=== PATIENT | male | born 1975 | race Caucasian/White ===

== ENCOUNTER 2018-04-26 07:41 | Emergency (ER) | payer MEDICAID ==
[~2018-04-26] VITALS: Ht 165.1 cm; Wt 68.5 kg
[2018-04-26 08:01] VITALS: Ht 165.1 cm; Wt 68.5 kg
[2018-04-26 08:59] LABS: PLATELET COUNT 212 x10^3mcL (130-400); RED CELL DISTRIBUTION WIDTH 14.3 % (11.5-14.5)
[2018-04-26 09:05] LABS: CALCIUM 8.9 mg/dL (8.5-10.1); CARBON DIOXIDE 25.2 mmol/L (21-32); CHLORIDE SERUM 100 mmol/L (98-107); GFR1 > 60 mL/min; GLUCOSE SERUM 111 mg/dL (74-106); POTASSIUM SERUM 3.7 mmol/L (3.5-5.1); SODIUM SERUM 134 mmol/L (136-145)
[2018-04-26 09:10] LABS: ALBUMIN 3.8 g/dL (3.4-5.0); ALKALINE PHOSPHATASE 112 U/L (46-116); ALT/SGPT 63 U/L (16-63); AST/SGOT 31 U/L (15-37); BILIRUBIN TOTAL 0.8 mg/dL (0.20-1.00); LIPASE 75 IU/L (73-393); TOTAL PROTEIN, SERUM 8.4 g/dL (6.4-8.2)
[2018-04-26 09:18] LABS: microscopic required? YES; urine erythrocyte NEGATIVE (NEGATIVE)
[2018-04-26 10:57] LABS: BAND NEUTROPHIL 7 % (0-10); BASOPHIL 0 % (0-2); MONOCYTE 1 % (0-7); SEGMENTED NEUTROPHILS 88 % (37-75)
[2018-04-26 10:59] LABS: rbc morphology (normal/abnorm) ABNORMAL (NORMAL)
[2018-04-26 11:00] LABS: PLATELET MORPHOLOGY PLATELETS NORMAL
[2018-04-26 12:00] VITALS: BP 137/94
== END 2018-04-26 12:00 | disposition home or self-care (01) ==
LOC: ED 07:41
PROVIDERS: Emergency Medicine
DX: E86.0 Dehydration (principal); R10.11 Right upper quadrant pain; R11.0 Nausea; R19.7 Diarrhea, unspecified
CPT/HCPCS: J1885; J2405; J7030; Q0092

== ENCOUNTER 2019-10-13 00:09 | Emergency (ER) | payer MEDICAID ==
[~2019-10-13] VITALS: Ht 167.6 cm; Wt 69.9 kg
[2019-10-13 00:16] VITALS: BP 149/81; Ht 167.6 cm; Wt 69.9 kg
== END 2019-10-13 01:14 | disposition home or self-care (01) ==
LOC: ED 00:09
DX: F41.9 Anxiety disorder, unspecified (principal)
CPT/HCPCS: 82962